=== PATIENT | male | born 2000 | race Asian ===

== ENCOUNTER 2021-02-15 08:31 | Inpatient (IN) | payer MEDICAID, OTHER ==
[~2021-02-15] VITALS: Ht 170.2 cm; Wt 75.0 kg
[2021-02-15] MEDS ORDERED: REMDESIVIR INJ 200 MG in normal saline 100ml IV soln 60 ML IV ONE (09:10)
[2021-02-15] MEDS ORDERED: dexamethasone sod phosphate 10mg/ml inj IV STA (09:10)
[2021-02-15 10:15] LABS: BASOPHILS % (AUTO) 0.1 % (0-1); EOSINOPHILS % (AUTO) 0 % (0-6); HEMATOCRIT 42.6 % (42.0-52.0); HEMOGLOBIN 14.7 g/dl (14.0-17.9); LYMPHOCYTES # (AUTO) 0.6 X10'3 (1.1-4.8); LYMPHOCYTES % (AUTO) 9.1 % (21-51); MEAN CORPUSCULAR HEMOGLOBIN 29.2 PG (27.0-31.0); MEAN CORPUSCULAR HGB CONC 34.5 g/dL (33.0-36.5); MEAN CORPUSCULAR VOLUME 84.6 FL (78-98); MEAN PLATELET VOLUME 9.6 FL (7.4-10.4); MONOCYTES # (AUTO) 0.6 X10'3 (0-0.9); MONOCYTES % (AUTO) 9.1 % (2-12); NEUTROPHILS # (AUTO) 5.1 X10'3 (1.8-7.7); NEUTROPHILS % (AUTO) 81.7 % (42-75); PLATELET COUNT 209 X10'3 (140-440); RED BLOOD COUNT 5.03 X10'6 (4.70-6.10); RED CELL DISTRIBUTION WIDTH 12.8 % (11.5-14.5); WHITE BLOOD COUNT 6.3 X10'3 (4.5-11.0)
[2021-02-15] MEDS ORDERED: iohexol 350MG/ML 100ml bottle IV ONE (10:43)
[2021-02-15 10:45] LABS: ALANINE AMINOTRANSFERASE 41 U/L (12-78); ALBUMIN 3.4 G/DL (3.4-5.0); ALBUMIN/GLOBULIN RATIO 0.8 (1.1-1.5); ALKALINE PHOSPHATASE 47 IU/L (46-116); ANION GAP 14 (8-16); ASPARTATE AMINO TRANSFERASE 61 U/L (10-37); BILIRUBIN,TOTAL 0.8 MG/DL (0.1-1.0); BLOOD UREA NITROGEN 10 MG/DL (7-18); BUN/CREATININE RATIO 8.6 (5.4-32.0); CALCIUM 8.3 MG/DL (8.5-10.1); CHLORIDE 96 MMOL/L (99-107); CREATININE 1.16 MG/DL (0.60-1.10); GLUCOSE 111 MG/DL (70-104); POTASSIUM 3.4 MMOL/L (3.5-5.1); SODIUM 131 MMOL/L (135-145); TOTAL PROTEIN 7.9 G/DL (6.4-8.2); eGFR 79 ML/MIN
[2021-02-15 11:12] LABS: C-REACTIVE PROTEIN 1.71 MG/DL (0.0-0.5); LACTATE DEHYDROGENASE 993 U/L (85-227)
[2021-02-15 11:14] LABS: FERRITIN 1808 NG/ML (26-388)
[2021-02-15] MEDS ORDERED: HYDROcodone/acetaminophen 5mg/325mg tablet PO PRN (12:05)
[2021-02-15] MEDS ORDERED: HYDROcodone/acetaminophen 10/325mg tab PO PRN (12:05)
[2021-02-15] MEDS ORDERED: diphenhydrAMINE 25mg capsule PO PRN (12:05)
[2021-02-15] MEDS ORDERED: acetaminophen 325mg tablet PO PRN ×2 (12:05)
[2021-02-15] MEDS ORDERED: ondansetron/PF 4mg/2ml inj IV PRN (12:05)
[2021-02-15] MEDS ORDERED: potassium Cl 40MEQ/1/2NS 520ml 520 ML IV PRN ×2 (12:05)
[2021-02-15] MEDS ORDERED: acetaminophen 650mg rectal suppository RC PRN (12:05)
[2021-02-15] MEDS ORDERED: potassium Cl 20 mEq SR tablet PO PRN (12:05)
[2021-02-15] MEDS ORDERED: magnesium hydroxide 30ml (MOM) UD suspension PO PRN (12:05)
[2021-02-15] MEDS ORDERED: magnesium 2GM in 50ml NS 50 ML IV PRN (12:05)
[2021-02-15] MEDS ORDERED: magnesium Cl slow-release 64mg tablet PO PRN (12:05)
[2021-02-15] MEDS ORDERED: magnesium 4gm in 100ml NS 100 ML IV PRN (12:05)
[2021-02-15] MEDS ORDERED: bisacodyl 10mg suppository rectal RC PRN (12:05)
[2021-02-15] MEDS ORDERED: mag hydrox/Alum hydrox/simeth 30ml oral suspension PO PRN (12:05)
[2021-02-15] MEDS ORDERED: NO HOME MEDS (15:23)
[2021-02-15 15:50] VITALS: BP 124/65
[2021-02-15] MEDS: normal saline 1000ml 1,000 ML IV SCH (17:00)
[2021-02-15] MEDS: enoxaparin 40mg/0.4ml syringe SUBCUT SCH ×2 (17:00→20:00)
--- NOTE | 2021-02-15 17:00 | NUR ---
Found pt with sao2 of 84% on room air. c/o dry nasal passage. O2 was at 5L, reduced to 2L. sao2 92% Explain need to keep oxygen on and if needed moisture may be added to prevent dryness> Patient agreed to keep n/c on.
[2021-02-15 18:00] VITALS: BP 111/57
[2021-02-15] MEDS: docusate sod 100mg capsule PO SCH (19:20)
[2021-02-15] MEDS: dexamethasone 6 MG in NS 50ml IV soln IV SCH (19:21)
[2021-02-15] MEDS: potassium Cl 20 mEq SR tablet PO PRN ×2 (19:21→23:57)
[2021-02-15] MEDS ORDERED: dexamethasone 4mg/ml inj IV SCH (20:00)
[2021-02-15] MEDS: K and/or MAG REPLACEMENT MC SCH (20:00)
[2021-02-15 22:00] VITALS: BP 103/59
[2021-02-16] MEDS: guaiFENesin 200 MG/10 ML oral syrup UD cup PO PRN ×2 (02:06→19:15)
[2021-02-16 06:00] VITALS: BP 112/68
--- NOTE | 2021-02-16 06:44 | NUR ---
Problems reprioritized. Patient report given, questions answered & plan of care reviewed with SHAHBAZ BEAR.
--- NOTE | 2021-02-16 07:11 | NUR ---
Patient in room [facility]TH[facility] 4023. I have received report from and had the opportunity to ask questions and assume patient care. Addendum: 02/16/21 at 0712 by Rena Peña RN Janay HARTMANN
[2021-02-16] MEDS: dexamethasone 6 MG in NS 50ml IV soln IV SCH ×2 (07:41→19:15)
[2021-02-16] MEDS: docusate sod 100mg capsule PO SCH ×2 (07:41→19:16)
[2021-02-16] MEDS: enoxaparin 40mg/0.4ml syringe SUBCUT SCH ×2 (07:42→19:17)
[2021-02-16] MEDS: K and/or MAG REPLACEMENT MC SCH ×2 (08:00→19:24)
[2021-02-16 08:34] LABS: BASOPHILS % (AUTO) 0.1 % (0-1); EOSINOPHILS % (AUTO) 0 % (0-6); LYMPHOCYTES # (AUTO) 0.8 X10'3 (1.1-4.8); MEAN CORPUSCULAR HGB CONC 35.4 g/dL (33.0-36.5); MEAN PLATELET VOLUME 10.3 FL (7.4-10.4); MONOCYTES # (AUTO) 0.6 X10'3 (0-0.9); WHITE BLOOD COUNT 4.4 X10'3 (4.5-11.0)
[2021-02-16 08:39] LABS: HEMATOCRIT 40.4 % (42.0-52.0); HEMOGLOBIN 14.3 g/dl (14.0-17.9); LYMPHOCYTES % (AUTO) 18.1 % (21-51); MEAN CORPUSCULAR HEMOGLOBIN 29.4 PG (27.0-31.0); MEAN CORPUSCULAR VOLUME 83.1 FL (78-98); MONOCYTES % (AUTO) 13.1 % (2-12); NEUTROPHILS % (AUTO) 68.7 % (42-75); PLATELET COUNT 213 X10'3 (140-440); RED BLOOD COUNT 4.86 X10'6 (4.70-6.10); RED CELL DISTRIBUTION WIDTH 12.8 % (11.5-14.5)
[2021-02-16] MEDS: REMDESIVIR INJ 100 MG in normal saline 100ml IV soln 80 ML IV SCH (08:56)
[2021-02-16 09:00] LABS: ALANINE AMINOTRANSFERASE 44 U/L (12-78); ALBUMIN 2.8 G/DL (3.4-5.0); ALBUMIN/GLOBULIN RATIO 0.7 (1.1-1.5); ALKALINE PHOSPHATASE 46 IU/L (46-116); ANION GAP 13 (8-16); ASPARTATE AMINO TRANSFERASE 50 U/L (10-37); BILIRUBIN,TOTAL 0.6 MG/DL (0.1-1.0); BLOOD UREA NITROGEN 15 MG/DL (7-18); CALCIUM 7.8 MG/DL (8.5-10.1); CHLORIDE 103 MMOL/L (99-107); CREATININE 0.88 MG/DL (0.60-1.10); GLUCOSE 134 MG/DL (70-104); MAGNESIUM 2.4 MG/DL (1.5-2.4); PHOSPHORUS 3.3 MG/DL (2.3-4.5); POTASSIUM 4.3 MMOL/L (3.5-5.1); SODIUM 138 MMOL/L (135-145); TOTAL CARBON DIOXIDE 22.2 MMOL/L (24-32); eGFR > 90 ML/MIN
[2021-02-16 09:24] LABS: C-REACTIVE PROTEIN 1.51 MG/DL (0.0-0.5); D-DIMER 0.43 MG/L FEU (0-0.50)
[2021-02-16 10:00] VITALS: BP 106/73
[2021-02-16 14:00] VITALS: BP 96/49
[2021-02-16] MEDS: normal saline 1000ml 1,000 ML IV SCH (14:28)
[2021-02-16 18:00] VITALS: BP 107/53
--- NOTE | 2021-02-16 18:14 | NUR ---
Problems reprioritized. Patient report given, questions answered & plan of care reviewed with Janay HARTMANN.
[2021-02-16 22:00] VITALS: BP 109/51
[2021-02-17 02:00] VITALS: BP 113/70
[2021-02-17] MEDS: guaiFENesin 200 MG/10 ML oral syrup UD cup PO PRN ×3 (03:34→23:13)
[2021-02-17] MEDS: normal saline 1000ml 1,000 ML IV SCH (04:05)
--- NOTE | 2021-02-17 06:25 | NUR ---
Problems reprioritized. Patient report given, questions answered & plan of care reviewed with SHAHBAZ PEARSON.
--- NOTE | 2021-02-17 06:27 | NUR ---
Patient in room [facility]TH[facility] 4023. I have received report from Janay HARTMANN and had the opportunity to ask questions and assume patient care.
[2021-02-17 06:54] VITALS: BP 95/46
[2021-02-17] MEDS: REMDESIVIR INJ 100 MG in normal saline 100ml IV soln 80 ML IV SCH ×2 (08:00→08:33)
[2021-02-17] MEDS: K and/or MAG REPLACEMENT MC SCH ×2 (08:00→19:49)
[2021-02-17] MEDS: docusate sod 100mg capsule PO SCH ×2 (08:00→19:53)
[2021-02-17 08:24] LABS: BASOPHILS % (AUTO) 0.1 % (0-1); EOSINOPHILS % (AUTO) 0 % (0-6); HEMATOCRIT 42.6 % (42.0-52.0); HEMOGLOBIN 14.7 g/dl (14.0-17.9); LYMPHOCYTES # (AUTO) 1.3 X10'3 (1.1-4.8); LYMPHOCYTES % (AUTO) 14.3 % (21-51); MEAN CORPUSCULAR HEMOGLOBIN 29.1 PG (27.0-31.0); MEAN CORPUSCULAR HGB CONC 34.6 g/dL (33.0-36.5); MEAN CORPUSCULAR VOLUME 84.2 FL (78-98); MEAN PLATELET VOLUME 9.7 FL (7.4-10.4); MONOCYTES # (AUTO) 1.1 X10'3 (0-0.9); MONOCYTES % (AUTO) 11.9 % (2-12); NEUTROPHILS # (AUTO) 6.7 X10'3 (1.8-7.7); NEUTROPHILS % (AUTO) 73.7 % (42-75); PLATELET COUNT 276 X10'3 (140-440); RED BLOOD COUNT 5.06 X10'6 (4.70-6.10); WHITE BLOOD COUNT 9.1 X10'3 (4.5-11.0)
[2021-02-17] MEDS: dexamethasone 6 MG in NS 50ml IV soln IV SCH ×2 (08:33→19:52)
[2021-02-17] MEDS: enoxaparin 40mg/0.4ml syringe SUBCUT SCH ×2 (08:33→19:53)
[2021-02-17 08:53] LABS: ALANINE AMINOTRANSFERASE 42 U/L (12-78); ALBUMIN 2.9 G/DL (3.4-5.0); ALBUMIN/GLOBULIN RATIO 0.7 (1.1-1.5); ALKALINE PHOSPHATASE 48 IU/L (46-116); ANION GAP 13 (8-16); ASPARTATE AMINO TRANSFERASE 46 U/L (10-37); BILIRUBIN,TOTAL 0.7 MG/DL (0.1-1.0); BLOOD UREA NITROGEN 17 MG/DL (7-18); BUN/CREATININE RATIO 17.9 (5.4-32.0); C-REACTIVE PROTEIN 0.41 MG/DL (0.0-0.5); CALCIUM 8.1 MG/DL (8.5-10.1); CHLORIDE 105 MMOL/L (99-107); CREATININE 0.95 MG/DL (0.60-1.10); GLUCOSE 113 MG/DL (70-104); LACTATE DEHYDROGENASE 642 U/L (85-227); MAGNESIUM 2.4 MG/DL (1.5-2.4); POTASSIUM 3.6 MMOL/L (3.5-5.1); SODIUM 141 MMOL/L (135-145); TOTAL CARBON DIOXIDE 23.2 MMOL/L (24-32); TOTAL PROTEIN 6.9 G/DL (6.4-8.2); eGFR > 90 ML/MIN
[2021-02-17 09:02] LABS: D-DIMER 0.37 MG/L FEU (0-0.50)
--- NOTE | 2021-02-17 10:53 | NUR ---
Upon assessment this morning patient had no oxygen on and was 84%, applied 3 liters nasal cannula and patient could not get sp02 up to 90%, applied high flow salter and turned up to 10 liters, after about 10 minutes patient was able to maintain 90% sp02. Lowered to 7 liters and patient is 92% at this time.
[2021-02-17 10:59] VITALS: BP 109/64
--- NOTE | 2021-02-17 12:17 | NUR ---
Patient is refusing lunch. Educated this morning on insentive spirometer, proning and position change and the importance of using his call light and asking for help when needed to go to the bathroom as her told this nurse that he almost passes out when he ambulates to the bathroom. Despite education patient is not making efforts to prone, use his IS or call for help when he needs to go to the restroom.
[2021-02-17 14:00] VITALS: BP 117/68
--- NOTE | 2021-02-17 16:55 | NUR ---
refrigeration technician called and stated patients oxygen saturation was 79% upon entry to the room the patient once again had his oxygen off. Oxygen reapplied and increased to 13 liters on a high flow salter. Saturations came up to 90%, educated again on importance on changing positions, using IS and coughing and deep breathing. Very resistive to doing these things.
[2021-02-17 18:00] VITALS: BP 109/64
--- NOTE | 2021-02-17 18:31 | NUR ---
Problems reprioritized. Patient report given, questions answered & plan of care reviewed with Isamar HARTMANN.
--- NOTE | 2021-02-17 18:49 | NUR ---
Patient in room [facility]TH[facility] 4023. I have received report from SHAHBAZ Crane and had the opportunity to ask questions and assume patient care.
[2021-02-17 22:00] VITALS: BP 107/61
[2021-02-18 02:00] VITALS: BP 107/67
[2021-02-18] MEDS: normal saline 1000ml 1,000 ML IV SCH ×2 (02:33→07:25)
[2021-02-18 05:17] LABS: COLOR,URINE YELLOW (Yellow); UA COLLECTION TYPE CLN CATCH MIDSTREAM
[2021-02-18 05:18] LABS: CLARITY,URINE CLEAR (Clear); GLUCOSE, URINE NEGATIVE (Neg); KETONES,URINE NEGATIVE (Neg); LEUKOCYTE ESTERASE ,URINE NEGATIVE (Neg); NITRITES, URINE NEGATIVE (Neg); OCCULT BLOOD,URINE NEGATIVE (Neg); PROTEIN,URINE NEGATIVE (Neg); UROBILINOGEN,URINE >=8.0 E.U/dL (0.2-1.0)
--- NOTE | 2021-02-18 06:33 | NUR ---
Problems reprioritized. Patient report given, questions answered & plan of care reviewed with SHAHBAZ Still.
--- NOTE | 2021-02-18 06:42 | NUR ---
Patient in room [facility]TH[facility] 4023. I have received report from Isamar HARTMANN and had the opportunity to ask questions and assume patient care.
[2021-02-18 06:49] VITALS: BP 107/66
[2021-02-18] MEDS: dexamethasone 6 MG in NS 50ml IV soln IV SCH ×2 (07:25→19:29)
[2021-02-18] MEDS: REMDESIVIR INJ 100 MG in normal saline 100ml IV soln 80 ML IV SCH ×2 (07:28→07:33)
[2021-02-18] MEDS: enoxaparin 40mg/0.4ml syringe SUBCUT SCH ×2 (07:28→19:28)
[2021-02-18] MEDS: docusate sod 100mg capsule PO SCH ×2 (08:00→19:29)
[2021-02-18] MEDS: K and/or MAG REPLACEMENT MC SCH ×2 (08:00→19:23)
[2021-02-18 08:49] LABS: BASOPHILS % (AUTO) 0 % (0-1); EOSINOPHILS % (AUTO) 0 % (0-6); HEMATOCRIT 43.3 % (42.0-52.0); HEMOGLOBIN 14.5 g/dl (14.0-17.9); LYMPHOCYTES # (AUTO) 0.9 X10'3 (1.1-4.8); LYMPHOCYTES % (AUTO) 14.1 % (21-51); MEAN CORPUSCULAR HEMOGLOBIN 28.9 PG (27.0-31.0); MEAN CORPUSCULAR HGB CONC 33.4 g/dL (33.0-36.5); MEAN CORPUSCULAR VOLUME 86.5 FL (78-98); MEAN PLATELET VOLUME 9.8 FL (7.4-10.4); MONOCYTES % (AUTO) 15.5 % (2-12); NEUTROPHILS # (AUTO) 4.3 X10'3 (1.8-7.7); NEUTROPHILS % (AUTO) 70.4 % (42-75); PLATELET COUNT 280 X10'3 (140-440); RED BLOOD COUNT 5.01 X10'6 (4.70-6.10); RED CELL DISTRIBUTION WIDTH 13.1 % (11.5-14.5); WHITE BLOOD COUNT 6.2 X10'3 (4.5-11.0)
[2021-02-18 09:00] LABS: D-DIMER 0.33 MG/L FEU (0-0.50)
[2021-02-18 09:13] LABS: ALANINE AMINOTRANSFERASE 107 U/L (12-78); ALBUMIN 2.9 G/DL (3.4-5.0); ALBUMIN/GLOBULIN RATIO 0.7 (1.1-1.5); ALKALINE PHOSPHATASE 52 IU/L (46-116); ANION GAP 12 (8-16); ASPARTATE AMINO TRANSFERASE 76 U/L (10-37); BILIRUBIN,TOTAL 0.9 MG/DL (0.1-1.0); BLOOD UREA NITROGEN 13 MG/DL (7-18); BUN/CREATININE RATIO 15.7 (5.4-32.0); C-REACTIVE PROTEIN 0.17 MG/DL (0.0-0.5); CALCIUM 8.2 MG/DL (8.5-10.1); CHLORIDE 108 MMOL/L (99-107); CREATININE 0.83 MG/DL (0.60-1.10); GLUCOSE 106 MG/DL (70-104); LACTATE DEHYDROGENASE 591 U/L (85-227); MAGNESIUM 2.6 MG/DL (1.5-2.4); PHOSPHORUS 4.1 MG/DL (2.3-4.5); SODIUM 144 MMOL/L (135-145); TOTAL CARBON DIOXIDE 23.9 MMOL/L (24-32); TOTAL PROTEIN 6.9 G/DL (6.4-8.2); eGFR > 90 ML/MIN
[2021-02-18 09:46] LABS: PLATELET ESTIMATE NORMAL; TOTAL CELLS COUNTED 100
[2021-02-18 11:09] VITALS: BP 110/59
[2021-02-18 14:56] VITALS: BP 115/60
[2021-02-18 18:00] VITALS: BP 117/59
--- NOTE | 2021-02-18 18:11 | NUR ---
Problems reprioritized. Patient report given, questions answered & plan of care reviewed with Isamar HARTMANN.
--- NOTE | 2021-02-18 18:23 | NUR ---
Patient in room [facility]TH[facility] 4023. I have received report from SHAHBAZ Still and had the opportunity to ask questions and assume patient care.
[2021-02-18] MEDS: guaiFENesin 200 MG/10 ML oral syrup UD cup PO PRN (21:23)
[2021-02-18 22:00] VITALS: BP 120/77
[2021-02-19 02:00] VITALS: BP 108/63
--- NOTE | 2021-02-19 06:19 | NUR ---
Problems reprioritized. Patient report given, questions answered & plan of care reviewed with SHAHBAZ Crane.
[2021-02-19 06:20] VITALS: BP 109/60
--- NOTE | 2021-02-19 06:45 | NUR ---
Problems reprioritized. Patient report given, questions answered & plan of care reviewed with Steven HARTMANN.
[2021-02-19 07:50] LABS: BASOPHILS % (AUTO) 0.1 % (0-1); EOSINOPHILS % (AUTO) 0.2 % (0-6); HEMATOCRIT 44.1 % (42.0-52.0); LYMPHOCYTES % (AUTO) 16.4 % (21-51); MEAN CORPUSCULAR HEMOGLOBIN 29.4 PG (27.0-31.0); MEAN CORPUSCULAR VOLUME 86.5 FL (78-98); MEAN PLATELET VOLUME 9.1 FL (7.4-10.4); MONOCYTES # (AUTO) 0.9 X10'3 (0-0.9); MONOCYTES % (AUTO) 15.1 % (2-12); NEUTROPHILS # (AUTO) 4.2 X10'3 (1.8-7.7); NEUTROPHILS % (AUTO) 68.2 % (42-75); PLATELET COUNT 296 X10'3 (140-440); RED CELL DISTRIBUTION WIDTH 12.9 % (11.5-14.5); WHITE BLOOD COUNT 6.2 X10'3 (4.5-11.0)
[2021-02-19] MEDS: K and/or MAG REPLACEMENT MC SCH ×2 (08:00→19:28)
[2021-02-19 08:08] LABS: D-DIMER 0.38 MG/L FEU (0-0.50)
[2021-02-19 08:12] LABS: ALANINE AMINOTRANSFERASE 186 U/L (12-78); ALBUMIN 3.1 G/DL (3.4-5.0); ALBUMIN/GLOBULIN RATIO 0.8 (1.1-1.5); ALKALINE PHOSPHATASE 54 IU/L (46-116); ANION GAP 10 (8-16); ASPARTATE AMINO TRANSFERASE 114 U/L (10-37); BILIRUBIN,TOTAL 0.8 MG/DL (0.1-1.0); BLOOD UREA NITROGEN 14 MG/DL (7-18); BUN/CREATININE RATIO 17.3 (5.4-32.0); C-REACTIVE PROTEIN 0.09 MG/DL (0.0-0.5); CALCIUM 8.4 MG/DL (8.5-10.1); CHLORIDE 106 MMOL/L (99-107); CREATININE 0.81 MG/DL (0.60-1.10); GLUCOSE 106 MG/DL (70-104); LACTATE DEHYDROGENASE 561 U/L (85-227); MAGNESIUM 2.6 MG/DL (1.5-2.4); PHOSPHORUS 3.6 MG/DL (2.3-4.5); POTASSIUM 4.2 MMOL/L (3.5-5.1); SODIUM 141 MMOL/L (135-145); TOTAL CARBON DIOXIDE 24.9 MMOL/L (24-32); TOTAL PROTEIN 7.1 G/DL (6.4-8.2); eGFR > 90 ML/MIN
[2021-02-19] MEDS: REMDESIVIR INJ 100 MG in normal saline 100ml IV soln 80 ML IV SCH (08:37)
[2021-02-19] MEDS: dexamethasone 6 MG in NS 50ml IV soln IV SCH (08:38)
[2021-02-19] MEDS: docusate sod 100mg capsule PO SCH ×2 (08:38→19:30)
[2021-02-19] MEDS: enoxaparin 40mg/0.4ml syringe SUBCUT SCH ×2 (08:39→19:30)
[2021-02-19 10:00] VITALS: BP 88/44
[2021-02-19 14:00] VITALS: BP 112/71
[2021-02-19] MEDS: normal saline 1000ml 1,000 ML IV SCH (16:05)
--- NOTE | 2021-02-19 16:33 | NUR ---
Pt has not been eating the hospital provided meals, however he has been bringing in other food. Reported he ate [employer] last night and ate [employer] for lunch today.
[2021-02-19 18:00] VITALS: BP 118/60
--- NOTE | 2021-02-19 18:21 | NUR ---
Patient in room [facility]TH[facility] 4023. I have received report from SHAHBAZ Marsh and had the opportunity to ask questions and assume patient care.
[2021-02-19] MEDS: dexamethasone inj 5 MG in normal saline 50ml IV soln 50 ML IV SCH (19:32)
[2021-02-19 22:00] VITALS: BP 117/66
[2021-02-20 02:00] VITALS: BP 104/57
--- NOTE | 2021-02-20 06:09 | NUR ---
Problems reprioritized. Patient report given, questions answered & plan of care reviewed with SHAHBAZ Crane.
[2021-02-20 06:21] VITALS: BP 104/60
--- NOTE | 2021-02-20 06:21 | NUR ---
Patient in room [facility]TH[facility] 4023. I have received report from Isamar HARTMANN and had the opportunity to ask questions and assume patient care.
[2021-02-20] MEDS: dexamethasone inj 5 MG in normal saline 50ml IV soln 50 ML IV SCH ×2 (07:38→22:29)
[2021-02-20] MEDS: enoxaparin 40mg/0.4ml syringe SUBCUT SCH ×2 (07:39→20:04)
[2021-02-20] MEDS: docusate sod 100mg capsule PO SCH ×2 (07:39→20:03)
[2021-02-20] MEDS: K and/or MAG REPLACEMENT MC SCH ×2 (08:00→20:00)
[2021-02-20 08:30] LABS: BASOPHILS % (AUTO) 0 % (0-1); EOSINOPHILS % (AUTO) 0.6 % (0-6); HEMATOCRIT 44.1 % (42.0-52.0); LYMPHOCYTES # (AUTO) 0.8 X10'3 (1.1-4.8); MEAN CORPUSCULAR HEMOGLOBIN 29.5 PG (27.0-31.0); MEAN CORPUSCULAR HGB CONC 33.9 g/dL (33.0-36.5); MEAN CORPUSCULAR VOLUME 86.8 FL (78-98); MONOCYTES # (AUTO) 0.9 X10'3 (0-0.9); MONOCYTES % (AUTO) 12.4 % (2-12); NEUTROPHILS # (AUTO) 5.2 X10'3 (1.8-7.7); PLATELET COUNT 336 X10'3 (140-440); RED BLOOD COUNT 5.09 X10'6 (4.70-6.10); RED CELL DISTRIBUTION WIDTH 12.8 % (11.5-14.5); WHITE BLOOD COUNT 6.9 X10'3 (4.5-11.0)
[2021-02-20 08:41] LABS: D-DIMER 0.28 MG/L FEU (0-0.50)
[2021-02-20 08:59] LABS: ALANINE AMINOTRANSFERASE 263 U/L (12-78); ALBUMIN 3.1 G/DL (3.4-5.0); ALBUMIN/GLOBULIN RATIO 0.8 (1.1-1.5); ALKALINE PHOSPHATASE 56 IU/L (46-116); ANION GAP 10 (8-16); ASPARTATE AMINO TRANSFERASE 105 U/L (10-37); BLOOD UREA NITROGEN 15 MG/DL (7-18); BUN/CREATININE RATIO 17.2 (5.4-32.0); C-REACTIVE PROTEIN 0.17 MG/DL (0.0-0.5); CALCIUM 8.5 MG/DL (8.5-10.1); CHLORIDE 105 MMOL/L (99-107); CREATININE 0.87 MG/DL (0.60-1.10); GLUCOSE 102 MG/DL (70-104); LACTATE DEHYDROGENASE 522 U/L (85-227); MAGNESIUM 2.6 MG/DL (1.5-2.4); PHOSPHORUS 3.8 MG/DL (2.3-4.5); SODIUM 142 MMOL/L (135-145); TOTAL CARBON DIOXIDE 26.8 MMOL/L (24-32); TOTAL PROTEIN 7.2 G/DL (6.4-8.2); eGFR > 90 ML/MIN
[2021-02-20 09:19] LABS: PLATELET ESTIMATE NORMAL; TOTAL CELLS COUNTED 100
[2021-02-20 10:13] VITALS: BP 99/53
--- NOTE | 2021-02-20 11:17 | NUR ---
Initial: Pt admit for acute respiratory failure from COVID-19 related PNA. Currently on a regular diet documented with 100% PO intake first two meals with occasional 25-50% PO intake however overall refusing most meals. Per health consultant 02/19 "Pt has not been eating the hospital provided meals, however he has been bringing in other food. Reported he ate [employer] last night and ate [employer] for lunch today." Pt likely meeting estimated nutrient needs if receiving outside food when refusing hospital meals. LBM 02/17, with routine bowel care available though pt documented to be refusing at times. No nutrition intervention implemented at this time. Will continue to follow and make recommendations as appropriate. Recommendations: 1) Continue regular diet 2) Allow outside food to optimize PO intake. Per health consultant pt bringing in other foods such as [employer] and [employer] 3) Monitor need for ONS 4) Routine bowel care 5) Scaled weight this admit; weekly scaled weights thereafter Addendum: 02/20/21 at [address] Amended: Links added.
[2021-02-20] MEDS: normal saline 1000ml 1,000 ML IV SCH (12:05)
[2021-02-20 13:53] VITALS: BP 92/55
[2021-02-20 17:24] VITALS: BP 107/62
--- NOTE | 2021-02-20 18:29 | NUR ---
Problems reprioritized. Patient report given, questions answered & plan of care reviewed with Vanessa HARTMANN.
[2021-02-20 22:00] VITALS: BP 89/50
[2021-02-21 02:00] VITALS: BP 107/62
[2021-02-21 06:00] VITALS: BP 94/50
--- NOTE | 2021-02-21 06:42 | NUR ---
Problems reprioritized. Patient report given, questions answered & plan of care reviewed with MICHEL HARTMANN.
--- NOTE | 2021-02-21 06:50 | NUR ---
Patient in room [facility]TH[facility] 4023B. I have received report from SHAHBAZ VYAS and had the opportunity to ask questions and assume patient care.
[2021-02-21 07:50] LABS: C-REACTIVE PROTEIN 0.34 MG/DL (0.0-0.5)
[2021-02-21] MEDS: K and/or MAG REPLACEMENT MC SCH ×2 (08:00→20:00)
[2021-02-21 08:03] LABS: D-DIMER 0.26 MG/L FEU (0-0.50)
[2021-02-21] MEDS: normal saline 1000ml 1,000 ML IV SCH (08:05)
[2021-02-21 10:00] VITALS: BP 95/45
[2021-02-21] MEDS: dexamethasone inj 5 MG in normal saline 50ml IV soln 50 ML IV SCH ×2 (10:21→19:46)
[2021-02-21] MEDS: docusate sod 100mg capsule PO SCH ×2 (10:21→19:46)
[2021-02-21] MEDS: enoxaparin 40mg/0.4ml syringe SUBCUT SCH ×2 (10:28→19:46)
[2021-02-21 14:00] VITALS: BP 111/66
[2021-02-21 16:03] LABS: D-DIMER 0.26 MG/L FEU (0-0.50)
[2021-02-21 18:00] VITALS: BP 107/65
--- NOTE | 2021-02-21 18:18 | NUR ---
Problems reprioritized. Patient report given, questions answered & plan of care reviewed with SHAHBAZ VYAS.
--- NOTE | 2021-02-21 18:53 | NUR ---
Patient in room [facility]TH[facility] 4023. I have received report from AMADOU HARTMANN and had the opportunity to ask questions and assume patient care.
[2021-02-22 02:00] VITALS: BP 122/57
[2021-02-22 06:00] VITALS: BP 133/86
--- NOTE | 2021-02-22 06:30 | NUR ---
Problems reprioritized. Patient report given, questions answered & plan of care reviewed with RIVER HARTMANN.
--- NOTE | 2021-02-22 06:39 | NUR ---
Patient in room [facility]TH[facility] 4023B. I have received report from SHAHBAZ Mendez and had the opportunity to ask questions and assume patient care.
[2021-02-22] MEDS: K and/or MAG REPLACEMENT MC SCH ×2 (08:00→19:40)
--- NOTE | 2021-02-22 08:47 | NUR ---
Page Sent PAGER ID: [phone] MESSAGE: RIVER [id number]: [id number] [id number]...REC'D CALL FROM TELE PT DEVELOPED 1ST DEGREE HEART BLOCK LAST NIGHT AND [place]KEBACH WITH LENGTHENING MS INTERVAL AND OCCASIONAL DROPPED BEATS.
[2021-02-22] MEDS ORDERED: magnesium Cl slow-release 64mg tablet PO PRN (09:00)
[2021-02-22] MEDS ORDERED: magnesium 4gm in 100ml NS 100 ML IV PRN (09:00)
[2021-02-22] MEDS ORDERED: potassium Cl 40MEQ/1/2NS 520ml 520 ML IV PRN (09:00)
[2021-02-22] MEDS ORDERED: potassium Cl 20 mEq SR tablet PO PRN ×2 (09:00)
[2021-02-22] MEDS: enoxaparin 40mg/0.4ml syringe SUBCUT SCH ×2 (09:12→19:39)
[2021-02-22] MEDS: docusate sod 100mg capsule PO SCH ×2 (09:12→19:39)
[2021-02-22 10:00] VITALS: BP 93/54
[2021-02-22] MEDS: dexamethasone inj 5 MG in normal saline 50ml IV soln 50 ML IV SCH (10:28)
[2021-02-22 11:16] LABS: BASOPHILS % (AUTO) 0.3 % (0-1); EOSINOPHILS # (AUTO) 0.4 X10'3 (0-0.9); HEMATOCRIT 43.6 % (42.0-52.0); HEMOGLOBIN 14.5 g/dl (14.0-17.9); LYMPHOCYTES # (AUTO) 1.2 X10'3 (1.1-4.8); LYMPHOCYTES % (AUTO) 12.6 % (21-51); MEAN CORPUSCULAR HGB CONC 33.3 g/dL (33.0-36.5); MEAN CORPUSCULAR VOLUME 87.1 FL (78-98); MEAN PLATELET VOLUME 9.4 FL (7.4-10.4); MONOCYTES # (AUTO) 1.5 X10'3 (0-0.9); MONOCYTES % (AUTO) 16.2 % (2-12); NEUTROPHILS # (AUTO) 6.1 X10'3 (1.8-7.7); NEUTROPHILS % (AUTO) 66.9 % (42-75); PLATELET COUNT 395 X10'3 (140-440); RED CELL DISTRIBUTION WIDTH 12.6 % (11.5-14.5); WHITE BLOOD COUNT 9.2 X10'3 (4.5-11.0)
[2021-02-22 11:21] LABS: D-DIMER 0.28 MG/L FEU (0-0.50)
[2021-02-22 11:28] LABS: ALANINE AMINOTRANSFERASE 185 U/L (12-78); ALBUMIN 2.8 G/DL (3.4-5.0); ALBUMIN/GLOBULIN RATIO 0.7 (1.1-1.5); ALKALINE PHOSPHATASE 56 IU/L (46-116); ANION GAP 8 (8-16); ASPARTATE AMINO TRANSFERASE 45 U/L (10-37); BILIRUBIN,TOTAL 0.6 MG/DL (0.1-1.0); BLOOD UREA NITROGEN 12 MG/DL (7-18); BUN/CREATININE RATIO 15.6 (5.4-32.0); C-REACTIVE PROTEIN 0.15 MG/DL (0.0-0.5); CALCIUM 8.4 MG/DL (8.5-10.1); CHLORIDE 105 MMOL/L (99-107); CREATININE 0.77 MG/DL (0.60-1.10); GLUCOSE 97 MG/DL (70-104); MAGNESIUM 2.5 MG/DL (1.5-2.4); POTASSIUM 4.1 MMOL/L (3.5-5.1); SODIUM 141 MMOL/L (135-145); TOTAL PROTEIN 6.8 G/DL (6.4-8.2); eGFR > 90 ML/MIN
[2021-02-22 12:04] LABS: TOTAL CELLS COUNTED 100
[2021-02-22 12:05] LABS: PLATELET ESTIMATE NORMAL
[2021-02-22 14:00] VITALS: BP 117/75
[2021-02-22 18:00] VITALS: BP 110/60
--- NOTE | 2021-02-22 18:38 | NUR ---
Problems reprioritized. Patient report given, questions answered & plan of care reviewed with SHAHBAZ GERMAN.
[2021-02-22] MEDS: dexamethasone inj 4 MG in normal saline 50ml IV soln 50 ML IV SCH (19:40)
[2021-02-22] MEDS ORDERED: K and/or MAG REPLACEMENT MC SCH (20:00)
--- NOTE | 2021-02-23 00:58 | NUR ---
Aide misplaced 2199 vitals-pt was stable. will retake before 0200.
[2021-02-23 01:00] VITALS: BP 120/60
[2021-02-23 06:15] VITALS: BP 82/41
[2021-02-23] MEDS: docusate sod 100mg capsule PO SCH ×2 (08:00→20:00)
[2021-02-23] MEDS: K and/or MAG REPLACEMENT MC SCH ×2 (08:00→20:00)
[2021-02-23] MEDS: enoxaparin 40mg/0.4ml syringe SUBCUT SCH ×2 (08:22→20:41)
[2021-02-23] MEDS: dexamethasone inj 4 MG in normal saline 50ml IV soln 50 ML IV SCH (08:22)
[2021-02-23 08:44] LABS: BASOPHILS % (AUTO) 0.5 % (0-1); EOSINOPHILS # (AUTO) 0.2 X10'3 (0-0.9); EOSINOPHILS % (AUTO) 2.4 % (0-6); HEMATOCRIT 41.6 % (42.0-52.0); HEMOGLOBIN 14.2 g/dl (14.0-17.9); LYMPHOCYTES % (AUTO) 11.6 % (21-51); MEAN CORPUSCULAR HEMOGLOBIN 29.8 PG (27.0-31.0); MEAN CORPUSCULAR VOLUME 87.5 FL (78-98); MONOCYTES # (AUTO) 1.6 X10'3 (0-0.9); MONOCYTES % (AUTO) 17.7 % (2-12); NEUTROPHILS % (AUTO) 67.8 % (42-75); PLATELET COUNT 439 X10'3 (140-440); RED BLOOD COUNT 4.76 X10'6 (4.70-6.10); RED CELL DISTRIBUTION WIDTH 12.8 % (11.5-14.5); WHITE BLOOD COUNT 8.8 X10'3 (4.5-11.0)
[2021-02-23 09:08] LABS: D-DIMER 0.51 MG/L FEU (0-0.50)
[2021-02-23 09:25] LABS: ALANINE AMINOTRANSFERASE 143 U/L (12-78); ALBUMIN 2.7 G/DL (3.4-5.0); ALBUMIN/GLOBULIN RATIO 0.7 (1.1-1.5); ALKALINE PHOSPHATASE 65 IU/L (46-116); ANION GAP 10 (8-16); ASPARTATE AMINO TRANSFERASE 28 U/L (10-37); BILIRUBIN,TOTAL 0.5 MG/DL (0.1-1.0); BLOOD UREA NITROGEN 17 MG/DL (7-18); BUN/CREATININE RATIO 19.3 (5.4-32.0); C-REACTIVE PROTEIN 0.06 MG/DL (0.0-0.5); CALCIUM 8.1 MG/DL (8.5-10.1); CHLORIDE 106 MMOL/L (99-107); CREATININE 0.88 MG/DL (0.60-1.10); GLUCOSE 105 MG/DL (70-104); LACTATE DEHYDROGENASE 319 U/L (85-227); MAGNESIUM 2.2 MG/DL (1.5-2.4); PHOSPHORUS 3.8 MG/DL (2.3-4.5); POTASSIUM 3.8 MMOL/L (3.5-5.1); SODIUM 143 MMOL/L (135-145); TOTAL CARBON DIOXIDE 26.7 MMOL/L (24-32); TOTAL PROTEIN 6.6 G/DL (6.4-8.2); eGFR > 90 ML/MIN
--- NOTE | 2021-02-23 09:31 | NUR ---
Reassessment: Pt documented as refusing all meals past week per EMR. Noted currently on 3L high flow. LBM 02/[address] AM[address] RD d/w RN PO hx. RN reports pt not willing to eat our food but is having take out brought in from outside for each meal such as [employer], [employer], etc.. and is eating daily meals. RD attempted to contact pt via TC for food preferences however no answer. Unable to accurately determine nutrition status w/ no food intake hx though likely at least partially meeting kcal needs given calorie-dense food deliveries. Will continue to monitor. Recommendations: 1) Continue regular diet; encourage meal PO; refusing all meals 2) Allow outside food to optimize PO intake. Per caseworker pt bringing in other foods such as [employer], [employer], etc. 3) Routine bowel care 4) Scaled weight this admit; weekly scaled weights thereafter Addendum: 02/23/21 at [address] Amended: Links added.
[2021-02-23 09:47] LABS: LARGE PLATELETS FEW; PLATELET ESTIMATE NORMAL; TOTAL CELLS COUNTED 100
[2021-02-23 11:00] VITALS: BP 96/65
[2021-02-23 14:00] VITALS: BP 120/69
[2021-02-23 18:00] VITALS: BP 107/62
--- NOTE | 2021-02-23 18:20 | NUR ---
Problems reprioritized. Patient report given, questions answered & plan of care reviewed with SHAHBAZ Vo.
[2021-02-23 22:00] VITALS: BP 137/78
[2021-02-24 02:00] VITALS: BP 109/57
[2021-02-24 07:54] LABS: BASOPHILS # (AUTO) 0.1 X10'3 (0-0.2); BASOPHILS % (AUTO) 0.6 % (0-1); EOSINOPHILS # (AUTO) 0.2 X10'3 (0-0.9); EOSINOPHILS % (AUTO) 2.2 % (0-6); HEMATOCRIT 39.3 % (42.0-52.0); HEMOGLOBIN 13.2 g/dl (14.0-17.9); LYMPHOCYTES % (AUTO) 22.1 % (21-51); MEAN CORPUSCULAR HEMOGLOBIN 29.6 PG (27.0-31.0); MEAN CORPUSCULAR HGB CONC 33.7 g/dL (33.0-36.5); MEAN CORPUSCULAR VOLUME 87.9 FL (78-98); MEAN PLATELET VOLUME 9.5 FL (7.4-10.4); MONOCYTES # (AUTO) 1.7 X10'3 (0-0.9); MONOCYTES % (AUTO) 18.4 % (2-12); NEUTROPHILS # (AUTO) 5.1 X10'3 (1.8-7.7); NEUTROPHILS % (AUTO) 56.7 % (42-75); PLATELET COUNT 385 X10'3 (140-440); RED BLOOD COUNT 4.47 X10'6 (4.70-6.10)
[2021-02-24] MEDS: enoxaparin 40mg/0.4ml syringe SUBCUT SCH (07:56)
[2021-02-24] MEDS: K and/or MAG REPLACEMENT MC SCH (08:00)
[2021-02-24] MEDS: docusate sod 100mg capsule PO SCH (08:00)
[2021-02-24] MEDS ORDERED: dexamethasone inj 6 MG in normal saline 50ml IV soln 50 ML IV SCH (08:00)
[2021-02-24 08:14] LABS: ALANINE AMINOTRANSFERASE 114 U/L (12-78); ALBUMIN 2.7 G/DL (3.4-5.0); ALBUMIN/GLOBULIN RATIO 0.8 (1.1-1.5); ALKALINE PHOSPHATASE 68 IU/L (46-116); ANION GAP 11 (8-16); ASPARTATE AMINO TRANSFERASE 25 U/L (10-37); BILIRUBIN,TOTAL 0.5 MG/DL (0.1-1.0); BLOOD UREA NITROGEN 16 MG/DL (7-18); BUN/CREATININE RATIO 16.8 (5.4-32.0); CALCIUM 8.2 MG/DL (8.5-10.1); CHLORIDE 110 MMOL/L (99-107); CREATININE 0.95 MG/DL (0.60-1.10); GLUCOSE 99 MG/DL (70-104); LACTATE DEHYDROGENASE 269 U/L (85-227); MAGNESIUM 2.2 MG/DL (1.5-2.4); PHOSPHORUS 4.1 MG/DL (2.3-4.5); POTASSIUM 3.3 MMOL/L (3.5-5.1); SODIUM 145 MMOL/L (135-145); TOTAL CARBON DIOXIDE 23.8 MMOL/L (24-32); TOTAL PROTEIN 6.2 G/DL (6.4-8.2); eGFR > 90 ML/MIN
[2021-02-24 08:18] LABS: C-REACTIVE PROTEIN < 0.05 MG/DL (0.0-0.5)
[2021-02-24 09:28] LABS: PLATELET ESTIMATE NORMAL; TOTAL CELLS COUNTED 100
[2021-02-24] MEDS ORDERED: ASPI-611 PO (09:31)
[2021-02-24] MEDS ORDERED: DEXA1TAB PO (09:31)
[2021-02-24] MEDS ORDERED: ALBU8.5H17 INH (09:31)
[2021-02-24] MEDS ORDERED: BENZ-16 PO (09:31)
== END 2021-02-24 17:22 | disposition home or self-care (01) | DRG 177 ==
LOC: ER 08:33 → ED HOLD 12:12 → ORTHO 4S 15:50
PROVIDERS: ADMIT Family Medicine; ATTEND Family Medicine
PROC: XW033E5 Introduction of Remdesivir Anti-infective into Peripheral Vein, Percutaneous Approach, New Technology Group 5 (ICD-10-PCS; principal; 2021-02-15)
PROC: B32T1ZZ Computerized Tomography (CT Scan) of Left Pulmonary Artery using Low Osmolar Contrast (ICD-10-PCS; 2021-02-15)
PROC: B3201ZZ Computerized Tomography (CT Scan) of Thoracic Aorta using Low Osmolar Contrast (ICD-10-PCS; 2021-02-15)
PROC: B32S1ZZ Computerized Tomography (CT Scan) of Right Pulmonary Artery using Low Osmolar Contrast (ICD-10-PCS; 2021-02-15)
PROC: 5A0955A Assistance with Respiratory Ventilation, Greater than 96 Consecutive Hours, High Flow/Velocity Cannula (ICD-10-PCS; 2021-02-17)
DX: U07.1 COVID-19 (principal); J96.01 Acute respiratory failure with hypoxia; J12.82 Pneumonia due to coronavirus disease 2019; E87.1 Hypo-osmolality and hyponatremia; N19 Unspecified kidney failure; R74.01 Elevation of levels of liver transaminase levels; E86.0 Dehydration; Z87.891 Personal history of nicotine dependence; Z91.19 Patient's noncompliance with other medical treatment and regimen
CPT/HCPCS: 36415; 71045; 71275; 80053; 81003; 82728; 83615; 83735; 84100; 84145; 85007; 85025; 85379; 85384; 86140; 87081; 94760; 96365; 96375; 99285; G0378; J1100; J1650; J7030; Q9967